=== PATIENT | female | born 1980 | race Hispanic/Latino ===

== ENCOUNTER 2017-04-10 18:57 | Emergency (ER) | payer BC, OTHER ==
[2017-04-10 18:57] VITALS: BMI 42.7
[2017-04-10 19:08] VITALS: BP 142/72; PULSE 74; RESP 20; TEMP 99.2; O2SAT 99
[2017-04-10] MEDS ORDERED: Iohexol 240 (50 ml) PO ONE (19:16)
[2017-04-10] MEDS ORDERED: Sodium Chloride 0.9% 1,000 ML IV STA (19:16)
--- NOTE | 2017-04-10 19:19 | ED PDOC ---
HPI: Abdomen Time Seen by Provider: 04/10/17 19:09 Chief Complaint (Nursing): Abdominal Pain History Per: Patient Onset/Duration Of Symptoms: Days (2) Current Symptoms Are (Timing): Still Present Severity: Moderate Pain Scale Rating Of: 4 Location Of Pain/Discomfort: RLQ Quality Of Discomfort: Sharp Associated Symptoms: Nausea. denies: Urinary Symptoms Exacerbating Factors: None Alleviating Factors: None Additional Complaint(s): Sharp RLQ abd pain assoc with nausea since yesterday. No fever or diarrhea. No urinary sxs Abnormal Vaginal Bleeding: No Past Medical History Vital Signs: Last Vital Signs Temp 99.2 F 04/10/17 19:05 Pulse 74 04/10/17 19:05 Resp 20 04/10/17 19:05 BP 142/72 04/10/17 19:05 Pulse Ox 99 04/11/17 00:48 - Medical History PMH: Gall Bladder Disease Denies: Chronic Kidney Disease Other PMH: gastric sleave, myomectomy - Surgical History Surgical History: Cholecystectomy - Family History Family History: States: Unknown Family Hx - Immunization History Hx Tetanus Toxoid Vaccination: No Hx Influenza Vaccination: No Hx Pneumococcal Vaccination: No - Home Medications Home Medications: Ambulatory Orders Medication Instructions Recorded Ketorolac Tromethamine [Toradol] 10 mg PO Q6 PRN #16 tab 11/05/15 Naproxen 500 mg PO Q12 PRN #20 tab 01/21/16 traMADol [Ultram] 50 mg PO TID PRN #15 tab 04/11/17 - Allergies Allergies/Adverse Reactions: Allergies Allergy/AdvReac Type Severity Reaction Status Date / Time No Known Allergies Allergy Verified 04/10/17 19:05 Review of Systems ROS Statement: Except As Marked, All Systems Reviewed And Found Negative Gastrointestinal: Positive for: Nausea, Abdominal Pain Genitourinary Female: Negative for: Dysuria, Frequency Physical Exam - Reviewed Nursing Documentation Reviewed: Yes Vital Signs Reviewed: Yes - Physical Exam Appears: Positive for: Non-toxic, Uncomfortable Head Exam: Positive for: ATRAUMATIC, NORMAL INSPECTION, NORMOCEPHALIC Skin: Positive for: Normal Color, Warm, DRY Eye Exam: Positive for: EOMI, Normal appearance, PERRL ENT: Positive for: Normal ENT Inspection Neck: Positive for: Normal, Painless ROM Cardiovascular/Chest: Positive for: Regular Rate, Rhythm Respiratory: Positive for: CNT, Normal Breath Sounds Gastrointestinal/Abdominal: Positive for: Bowel Sounds, Soft, Tenderness (RLQ) Back: Positive for: Normal Inspection Extremity: Positive for: Normal ROM Neurologic/Psych: Positive for: Alert, Oriented - Laboratory Results Result Diagrams: 04/10/17 20:11 04/10/17 20:11 - ECG O2 Sat by Pulse Oximetry: 99 Disposition - Clinical Impression Clinical Impression: Abdominal pain - Patient ED Disposition Is Patient to be Admitted: Transfer of Care - Disposition Disposition: Transfer of Care Disposition Time: 00:00 Condition: STABLE Additional Instructions: PLEASE KEEP YOUR APPOINTMENT WITH YOU ANESTHESIOLOGY PHYSICIAN ASSISTANT ON WEDNESDAY TAKE MEDICATIONS PRESCRIBED. THESE MEDICATIONS CAN PUT YOU AT RISK FOR DEPENDENCE, ADDICTION, OVERDOSE AND SO PLEASE USE THEM PRESCRIBED ONLY. RETURN TO ER FOR WORSENING SYMPTOMS. Prescriptions: traMADol [Ultram] 50 mg PO TID PRN #15 tab PRN Reason: SEVERE PAIN ONLY Instructions: Ovarian Cyst (ED), Narcotic Pain Management (ED), Abdominal Pain (ED) Patient Signed Over To: Ana Maria Kong
[2017-04-10 20:18] LABS: BASO # 0.1 K/uL (0.0-0.2); BASO % 0.6 % (0.0-2.0); EOS # 0.1 K/uL (0.0-0.7); EOS % 1.2 % (0.0-4.0); HEMATOCRIT 37.5 % (34.0-47.0); LYMPH # 2.7 K/uL (1.0-4.3); LYMPH % 26.9 % (20.0-40.0); MEAN CELL VOLUME 75.9 fl (81.0-99.0); MEAN CORPUSCULAR HEMOGLOBIN 24.7 pg (27.0-31.0); MEAN CORPUSCULAR HGB CONC 32.6 g/dL (33.0-37.0); MEAN PLATELET VOLUME 8.7 fl (7.2-11.7); MONO # 0.8 K/uL (0.0-0.8); MONO % 7.5 % (0.0-10.0); NEUT # 6.5 K/uL (1.8-7.0); NEUT % 63.8 % (50.0-75.0); RED CELL DISTRIBUTION WIDTH 14.5 % (11.5-14.5); WHITE BLOOD COUNT 10.1 K/uL (4.8-10.8)
[2017-04-10 21:16] LABS: ALB/GLOB RATIO 1.3 (1.0-2.1); ALKALINE PHOSPHATASE 92 U/L (38-126); ALT/SGPT 35 U/L (9-52); AST/SGOT 25 U/L (14-36); BILIRUBIN,TOTAL 0.4 mg/dl (0.2-1.3); BLOOD UREA NITROGEN 17 mg/dl (7-17); CALCIUM 9.9 mg/dL (8.4-10.2); CARBON DIOXIDE 21 mmol/L (22-30); CHLORIDE 107 mmol/L (98-107); GFR AFRICAN-AMERICAN > 60; GLUCOSE,RANDOM 94 mg/dL (65-105); POTASSIUM 4.1 MMOL/L (3.6-5.0); SODIUM 141 mmol/l (132-148); TOTAL PROTEIN 8.1 G/DL (6.3-8.2)
--- NOTE | 2017-04-11 00:22 | CT ---
EXAM: CT Abdomen and Pelvis With Intravenous Contrast CLINICAL HISTORY: 36 years old, female; Pain; Abdominal pain; Acute; Additional info: Abd pain TECHNIQUE: Axial computed tomography images of the abdomen and pelvis with intravenous contrast. This CT exam was performed using one or more of the following dose reduction techniques: automated exposure control, adjustment of the mA and/or kV according to patient size, and/or use of iterative reconstruction technique. Coronal and sagittal reformatted images were created and reviewed. CONTRAST: 95 mL of omni administered intravenously. COMPARISON: US - TRANSVAGINAL 01/21/2016 8:14:00 PM FINDINGS: Lower thorax: Minimal atelectasis. ABDOMEN: Liver: No mass. Gallbladder and bile ducts: Cholecystectomy. Mild prominence of intrahepatic and extra hepatic ducts. Pancreas: No ductal dilation. No mass. Spleen: No splenomegaly. Adrenals: No mass. Kidneys and ureters: No mass. No hydronephrosis. Stomach and bowel: Postsurgical changes of stomach. Few scattered diverticula within colon. No associated inflammatory stranding. No obstruction. Appendix: Normal caliber. No inflammation. PELVIS: Bladder: Unremarkable. Reproductive: 2.2 x 1.3 x 1.6 cm hypodense lesion within RIGHT ovary. ABDOMEN and PELVIS: Intraperitoneal space: Trace free fluid within pelvis. No free air. Bones/joints: No acute fracture. Soft tissues: Tiny umbilical hernia containing fat. Vasculature: Unremarkable. No aneurysm. Lymph nodes: No pathologically enlarged lymph nodes. IMPRESSION: 1. Probable RIGHT ovarian cyst. Consider ultrasound. 2. Diverticulosis without definite CT evidence of diverticulitis. 3. Incidental/non-acute findings are described above.
--- NOTE | 2017-04-11 00:48 | ED PDOC ---
- Laboratory Results Result Diagrams: 04/10/17 20:11 04/10/17 20:11 - ECG O2 Sat by Pulse Oximetry: 99 Medical Decision Making Medical Decision Makin:00 Received endorsement from Sha Barone MD to me pending ED workup, reassessment, and final disposition. 00:22 CT abdomen and pelvis read and reviewed by radiologist. FINDINGS: Lower thorax: Minimal atelectasis. ABDOMEN: Liver: No mass. Gallbladder and bile ducts: Cholecystectomy. Mild prominence of intrahepatic and extra hepatic ducts. Pancreas: No ductal dilation. No mass. Spleen: No splenomegaly. Adrenals: No mass. Kidneys and ureters: No mass. No hydronephrosis. Stomach and bowel: Postsurgical changes of stomach. Few scattered diverticula within colon. No associated inflammatory stranding. No obstruction. Appendix: Normal caliber. No inflammation. PELVIS: Bladder: Unremarkable. Reproductive: 2.2 x 1.3 x 1.6 cm hypodense lesion within RIGHT ovary. ABDOMEN and PELVIS: Intraperitoneal space: Trace free fluid within pelvis. No free air. Bones/joints: No acute fracture. Soft tissues: Tiny umbilical hernia containing fat. Vasculature: Unremarkable. No aneurysm. Lymph nodes: No pathologically enlarged lymph nodes. IMPRESSION: 1. Probable RIGHT ovarian cyst. Consider ultrasound. 2. Diverticulosis without definite CT evidence of diverticulitis. 3. Incidental/non-acute findings are described above. 12:[address] scan with patient. Patient will follow up with waist cutter for an evaluation on Wednesday. Patient is given an Rx for Tramadol. Return if symptoms persist or worsen. Scribe Attestation: Documented by Lluvia Tompkins, acting as a scribe for Ana Maria Kong MD. Provider Scribe Attestation: All medical record entries made by the Scribe were at my direction and personally dictated by me. I have reviewed the chart and agree that the record accurately reflects my personal performance of the history, physical exam, medical decision making, and the department course for this patient. I have also personally directed, reviewed, and agree with the discharge instructions and disposition. Disposition - Disposition Disposition Time: 12:41 Condition: STABLE Prescriptions: traMADol [Ultram] 50 mg PO TID PRN #15 tab PRN Reason: SEVERE PAIN ONLY
== END 2017-04-11 01:13 | disposition home or self-care (01) ==
LOC: H.ER 18:57
DX: K57.30 Diverticulosis of large intestine without perforation or abscess without bleeding (principal); N83.291 Other ovarian cyst, right side; R11.0 Nausea

== ENCOUNTER 2017-04-25 15:11 | Observation (INO) | payer OTHER ==
[2017-04-25 15:12] VITALS: BMI 42.7
[2017-04-25 15:22] VITALS: BP 144/84; PULSE 59; RESP 18; TEMP 98.4; O2SAT 99
[2017-04-25 15:58] LABS: HEMOGLOBIN 12.3 g/dL (12.0-16.0); MEAN CELL VOLUME 75.5 fl (81.0-99.0); MEAN CORPUSCULAR HEMOGLOBIN 24.3 pg (27.0-31.0); MEAN CORPUSCULAR HGB CONC 32.2 g/dL (33.0-37.0); RBC 5.05 Mil/uL (3.80-5.20)
[2017-04-25 16:13] LABS: ALB/GLOB RATIO 1.4 (1.0-2.1); ALBUMIN 4.6 g/dL (3.5-5.0); ALT/SGPT 33 U/L (9-52); AST/SGOT 30 U/L (14-36); BLOOD UREA NITROGEN 8 mg/dl (7-17); CALCIUM 9.7 mg/dL (8.4-10.2); GFR AFRICAN-AMERICAN > 60; GFR NON-AFRICAN AMERICAN > 60
[2017-04-25 16:34] LABS: INR 1.2 (0.9-1.2); PARTIAL THROMBOPLASTIN TIME 33.7 Seconds (25.6-37.1); PROTHROMBIN TIME 13.1 Seconds (9.8-13.1)
--- NOTE | 2017-04-25 17:07 | ED PDOC ---
HPI: Female Pain Time Seen by Provider: 04/25/17 15:36 Chief Complaint (Nursing): Female Genitourinary Chief Complaint (Provider): Right sided pelvic pain, vaginal bleeding History Per: Patient History/Exam Limitations: no limitations Onset/Duration Of Symptoms: Days Current Symptoms Are (Timing): Still Present Quality Of Discomfort: Sharp Additional Complaint(s): PT has history of PCOS. PT was see in ER 2 weeks ago and diagnosed with ovarian cyst. PT reports continued pain but states it is worse today and she began having vaginal bleeding yesterday. PT states that if this is her menses it is 1 week early. Pt has history of 1 which was ectopic. Past Medical History Reviewed: Historical Data, Nursing Documentation, Vital Signs Vital Signs: Last Vital Signs Temp 98.4 F 04/25/17 15:20 Pulse 59 L 04/25/17 15:20 Resp 18 04/25/17 15:20 BP 144/84 04/25/17 15:20 Pulse Ox 99 04/25/17 15:20 - Medical History PMH: Gall Bladder Disease Denies: Chronic Kidney Disease - Surgical History Surgical History: Cholecystectomy - Family History Family History: States: Unknown Family Hx - Immunization History Hx Tetanus Toxoid Vaccination: No Hx Influenza Vaccination: No Hx Pneumococcal Vaccination: No - Home Medications Home Medications: Ambulatory Orders Medication Instructions Recorded Ketorolac Tromethamine [Toradol] 10 mg PO Q6 PRN #16 tab 11/05/15 Naproxen 500 mg PO Q12 PRN #20 tab 01/21/16 traMADol [Ultram] 50 mg PO TID PRN #15 tab 04/11/17 - Allergies Allergies/Adverse Reactions: Allergies Allergy/AdvReac Type Severity Reaction Status Date / Time No Known Allergies Allergy Verified 04/25/17 15:20 Review of Systems ROS Statement: Except As Marked, All Systems Reviewed And Found Negative Constitutional: Negative for: Fever, Chills Genitourinary Female: Positive for: Vaginal Bleeding, Pelvic Pain Physical Exam - Reviewed Nursing Documentation Reviewed: Yes Vital Signs Reviewed: Yes - Physical Exam Appears: Positive for: Well, Non-toxic, No Acute Distress Head Exam: Positive for: ATRAUMATIC, NORMAL INSPECTION, NORMOCEPHALIC Skin: Positive for: Normal Color, Warm, DRY Eye Exam: Positive for: Normal appearance ENT: Positive for: Normal ENT Inspection Neck: Positive for: Normal, Painless ROM Cardiovascular/Chest: Positive for: Regular Rate, Rhythm Respiratory: Positive for: Normal Breath Sounds. Negative for: Accessory Muscle Use, Respiratory Distress Gastrointestinal/Abdominal: Positive for: Bowel Sounds, Soft, Tenderness ( Diffuse ). Negative for: Normal Exam Back: Positive for: Normal Inspection Extremity: Positive for: Normal ROM Neurologic/Psych: Positive for: Alert, Oriented - Laboratory Results Result Diagrams: 04/25/17 15:54 04/25/17 15:54 - ECG O2 Sat by Pulse Oximetry: 99 Pulse Ox Interpretation: Normal Medical Decision Making Medical Decision Making: Pt endorsed pending US at 1999 to Ana Maria Jones PA-C Disposition - Clinical Impression Clinical Impression: Abdominal pain - Patient ED Disposition Is Patient to be Admitted: Transfer of Care - Disposition Disposition: Transfer of Care Disposition Time: 20:00 Condition: GOOD
[2017-04-25 17:17] LABS: RENAL EPITHELIAL 1 /hpf (0-3); URINE BACTERIA OCC (<OCC); URINE BILIRUBIN NEGATIVE (NEGATIVE); URINE BLOOD LARGE (NEGATIVE); URINE CLARITY CLOUDY (Clear); URINE COLOR RED (YELLOW); URINE GLUCOSE (UA) NEG (Normal); URINE LEUKOCYTE ESTERASE NEG Leu/uL (Negative); URINE NITRATE NEGATIVE (NEGATIVE); URINE PROTEIN 100 mg/dL (NEGATIVE); URINE UROBILINOGEN 0.2-1.0 mg/dL (0.2-1.0)
--- NOTE | 2017-04-25 20:43 | ED PDOC ---
- Laboratory Results Result Diagrams: 04/25/17 15:54 04/25/17 15:54 - ECG O2 Sat by Pulse Oximetry: 99 Medical Decision Making Medical Decision Making: Case endorsed to underwriter from [employer] at 20:00 pending diagnostic review and re-eval HPI: Female Pain Time Seen by Provider: 04/25/17 15:36 Chief Complaint (Nursing): Female Genitourinary Chief Complaint (Provider): Right sided pelvic pain, vaginal bleeding History Per: Patient History/Exam Limitations: no limitations Onset/Duration Of Symptoms: Days Current Symptoms Are (Timing): Still Present Quality Of Discomfort: Sharp Additional Complaint(s): PT has history of PCOS. PT was see in ER 2 weeks ago and diagnosed with ovarian cyst. PT reports continued pain but states it is worse today and she began having vaginal bleeding yesterday. PT states that if this is her menses it is 1 week early. Pt has history of 1 which was ectopic. Upon my eval, pt in bed in NAD. Resting comfortably, awaiting results CBC and COMP resulted WNL UA resulted with large blood and 80 WBCs US: TECHNIQUE: Real-time transvaginal pelvic ultrasound (complete) with image documentation. Transvaginal imaging was used for better evaluation of the endometrium and adnexa. COMPARISON: CT - ABD PELVIS PO IV CONTRAST 04/10/2017 11:46:10 PM FINDINGS: Uterus/cervix: Two uterine masses, larger measuring 4.1 x 2.9 x 3.9 cm. Endometrium: 0.4 cm in thickness. Right ovary: 1.3 x 1.1 x 0.8 cm anechoic lesion. Normal flow. Left ovary: No mass. Normal flow. Free fluid: No significant free fluid. IMPRESSION: 1. Probable fibroid uterus. 2. RIGHT ovarian cyst. 3. Incidental/non-acute findings are described above. Pt educated on results and demonstrated full understanding. Stable for discharge at this time. Advised to follow up with CLIENT RELATION SPECIALIST, return to ED with any concerns Disposition - Clinical Impression Clinical Impression: Abdominal pain, UTI (urinary tract infection), Uterine fibroid - POA Present On Arrival: None - Disposition Disposition: Routine/Home Disposition Time: 00:25 Condition: GOOD
--- NOTE | 2017-04-26 10:10 | US ---
HISTORY: right sided pelvic pain COMPARISON: 01/21/2016. TECHNIQUE: Transvaginal pelvic ultrasound was performed FINDINGS: UTERUS: Measures 8.1 x 2.8 cm. The uterus is enlarged and lobular. There is a 4.0 x 2.9 x 3.8 cm posterior intramural fundal fibroid and a 3.0 x 2.9 x 2.8 cm smaller intramural posterior fundal fibroid. ENDOMETRIUM: Measures 4.2 mm in diameter. Grossly normal in appearance. CERVIX: No cervical abnormality identified. RIGHT OVARY: Measures 2.9 x 2.3 x 2.1 cm. No solid mass. Normal flow. There is a 1.3 cm cyst. LEFT OVARY: Measures 2.9 x 2.1 x 2.0 cm. No solid mass. Normal flow. FREE FLUID: No significant free fluid noted. OTHER FINDINGS: None. IMPRESSION: Two intramural posterior fundal fibroids, the larger measures 4.0 cm.
== END 2017-04-26 00:17 ==
LOC: H.ER 15:11 → H.EROBSV 18:00
PROVIDERS: ADMIT Emergency Medicine; ATTEND Emergency Medicine
DX: N39.0 Urinary tract infection, site not specified (principal); D25.9 Leiomyoma of uterus, unspecified; E28.2 Polycystic ovarian syndrome; N83.201 Unspecified ovarian cyst, right side